=== PATIENT | female | born 1960 | race Asian ===

== ENCOUNTER → 2016-08-08 | Outpatient (CLI) | payer OTHER ==
[~2016-08-08] VITALS: Ht 162.6 cm; Wt 72.6 kg
[~2016-08-08] MED LIST: ASPI1TAB PO; ATOR1TAB19 PO; LIDOCAINE 2% INJ 100 MG/5 ML SDV (FOR ANES.) As Ordered ONE; LISI-538 PO; METF-808 PO; NS 1,000 ML IV ONE; OMEP20CA3 PO; PROPOFOL 200 MG/20 ML VIAL As Ordered ONE
--- NOTE | 2016-08-08 09:36 | ROOR ---
Patient Name: Tegan Ray Procedure Date: 08/08/2016 9:22 AM Date of : 1960 Age: 56 Room: [facility] Gender: Female Note Status: Finalized Procedure: Upper Endoscopy + Biopsies Indications: Heartburn, Family history of gastric cancer Providers: Puneet Kaiser MD Referring MD: NAVIN HOLDEN MD Requesting Provider: Medicines: Monitored Anesthesia Care Complications: No immediate complications. Procedure: Pre-Anesthesia Assessment: - The heart rate, respiratory rate, oxygen saturations, blood pressure, adequacy of pulmonary ventilation, and response to care were monitored throughout the procedure. The Endoscope was introduced through the mouth, and advanced to the second part of duodenum. The upper GI endoscopy was accomplished without difficulty. The patient tolerated the procedure well. Findings: The Z-line was regular and was found 40 cm from the incisors. No other significant abnormalities were identified in a careful examination of the stomach. Biopsies were taken with a cold forceps in the gastric antrum for Helicobacter pylori testing. The exam of the duodenum was otherwise normal. Impression: - Z-line regular, 40 cm from the incisors. - Biopsies were taken with a cold forceps for Helicobacter pylori testing. - The examination was otherwise normal. Recommendation: - Patient has a contact number available for emergencies. The signs and symptoms of potential delayed complications were discussed with the patient. Return to normal activities tomorrow. Written discharge instructions were provided to the patient. - High fiber diet. - Discharge patient to home. - Follow an antireflux regimen. - Continue present medications. - Await pathology results. - Telephone GI clinic for pathology results in 1 week. - Return to referring physician. - The findings and recommendations were discussed with the patient's family. Puneet Kaiser MD Puneet Kaiser MD 08/08/2016 9:36:18 AM This report has been signed electronically. Number of Addenda: 0 Note Initiated On: 08/08/2016 9:22 AM Estimated Blood Loss: Estimated blood loss: none.
[2016-08-08 09:59] VITALS: BP 126/84
== END | disposition home or self-care (01) ==
LOC: M OPP 08:19
PROVIDERS: ATTEND Internal Medicine Gastroenterology
DX: R12 Heartburn (principal); K62.5 Hemorrhage of anus and rectum; Z80.0 Family history of malignant neoplasm of digestive organs; I10 Essential (primary) hypertension; E78.5 Hyperlipidemia, unspecified; E11.9 Type 2 diabetes mellitus without complications; K21.9 Gastro-esophageal reflux disease without esophagitis; Z87.891 Personal history of nicotine dependence; Z91.040 Latex allergy status; Z91.030 Bee allergy status; Z79.82 Long term (current) use of aspirin; Z79.84 Long term (current) use of oral hypoglycemic drugs; Z79.899 Other long term (current) drug therapy

== ENCOUNTER → 2017-02-14 | Outpatient (CLI) | payer OTHER ==
[~2017-02-14] MED LIST changes: -LIDOCAINE 2% INJ 100 MG/5 ML SDV (FOR ANES.) As Ordered ONE; -NS 1,000 ML IV ONE; -PROPOFOL 200 MG/20 ML VIAL As Ordered ONE
--- NOTE | 2017-02-15 07:48 | REP ---
CLINICAL: History of tobacco abuse. COMPARISON: None. TECHNIQUE: Axial low dose noncontrast images from the thoracic inlet to the upper abdomen using lung screening technique imaged and reviewed in lung windows only. FINDINGS: The lung benítez are well aerated. No consolidation, significant nodule or mass lesion is appreciated. A calcified nodule in the right upper lobe (image 36) appears chronic. No pleural effusion/reaction or pneumothorax. Tracheobronchial tree is patent. The mediastinum demonstrates relatively normal aorta and heart/pericardium. Evidence for prior mammoplasty noted. IMPRESSION: Lung-RADS category I. No significant nodule or suspicious abnormality noted. Signed by Theo Carolina MD 02/15/2017 07:50 A
== END ==
LOC: M RAD 14:24
PROVIDERS: ATTEND Internal Medicine
DX: I95.9 Hypotension, unspecified (principal); F17.200 Nicotine dependence, unspecified, uncomplicated

== ENCOUNTER 2017-04-24 07:30 | Day surgery (SDC) | payer OTHER ==
[2017-04-24] MEDS: NS 1,000 ML IV (08:00)
[2017-04-24] MEDS ORDERED: LIDOCAINE 2% INJ 100 MG/5 ML SDV (FOR ANES.) As Ordered (08:50)
[2017-04-24] MEDS ORDERED: PROPOFOL 200 MG/20 ML VIAL As Ordered ×3 (08:50→08:57)
[2017-04-24] MEDS ORDERED: PHENYLephrine HCL 500 MCG/5 ML (100MCG/ML) SYRINGE (J2370) As Ordered (08:54)
== END 2017-04-24 10:10 | disposition home or self-care (01) ==
LOC: M OPP 07:30
DX: Z12.11 Encounter for screening for malignant neoplasm of colon (principal); C18.9 Malignant neoplasm of colon, unspecified; D12.0 Benign neoplasm of cecum; D17.5 Benign lipomatous neoplasm of intra-abdominal organs; K57.30 Diverticulosis of large intestine without perforation or abscess without bleeding; K64.0 First degree hemorrhoids; I10 Essential (primary) hypertension; E78.5 Hyperlipidemia, unspecified; E11.9 Type 2 diabetes mellitus without complications; R12 Heartburn; K21.9 Gastro-esophageal reflux disease without esophagitis; Z91.040 Latex allergy status; Z91.030 Bee allergy status; Z79.84 Long term (current) use of oral hypoglycemic drugs; Z79.899 Other long term (current) drug therapy; Z80.0 Family history of malignant neoplasm of digestive organs
CPT/HCPCS: 45380

== ENCOUNTER → 2017-04-30 | Outpatient (CLI) | payer OTHER ==
[~2017-04-30] MED LIST changes: -ASPI1TAB PO; -ATOR1TAB19 PO; -LISI-538 PO; -METF-808 PO; -OMEP20CA3 PO; +PROHANCE 279.3MG/ML 15ML VIAL (A9576) As Ordered
== END ==
LOC: M RAD 10:54
DX: N83.202 Unspecified ovarian cyst, left side (principal); Z90.710 Acquired absence of both cervix and uterus; C20 Malignant neoplasm of rectum
CPT/HCPCS: A9576

== ENCOUNTER → 2017-05-02 | Outpatient (CLI) | payer OTHER ==
[~2017-05-02] MED LIST changes: +GASTROGRAFIN SOLUTION 30ML (Q9963) As Ordered; +ISOVUE-370 76% 100ML VIAL (Q9967) As Ordered; -PROHANCE 279.3MG/ML 15ML VIAL (A9576) As Ordered
== END ==
LOC: M RAD 12:34
DX: R19.09 Other intra-abdominal and pelvic swelling, mass and lump (principal); N20.0 Calculus of kidney; C20 Malignant neoplasm of rectum
CPT/HCPCS: Q9963

== ENCOUNTER → 2017-05-09 | Outpatient (CLI) | payer OTHER | LOC: M EKG 12:20 | DX: C18.7 Malignant neoplasm of sigmoid colon (principal) ==

== ENCOUNTER 2017-05-13 06:35 | Inpatient (IN) | payer OTHER ==
[~2017-05-13 06:35] MED LIST changes: -GASTROGRAFIN SOLUTION 30ML (Q9963) As Ordered; +GLYCOPYRROLATE INJ 0.2 MG/ML 2 ML VIAL As Ordered; -ISOVUE-370 76% 100ML VIAL (Q9967) As Ordered; +LIDOCAINE 2% INJ 100 MG/5 ML SDV (FOR ANES.) As Ordered; +NEOSTIGMINE 10 MG/10 ML VIAL (J2710) As Ordered; +ONDANSETRON 4MG/2ML VIAL (J2405) As Ordered; +PROPOFOL 200 MG/20 ML VIAL As Ordered; +ROCURONIUM BROMIDE 50 MG/5 ML VIAL As Ordered; +dexameTHASONE 4 MG/ML 1ML VIAL (J1100) As Ordered
[2017-05-13] MEDS ORDERED: KETOROLAC 60 MG/2 ML VIAL (J1885) As Ordered (06:36)
[2017-05-13] MEDS ORDERED: dexameTHASONE 4 MG/ML 1ML VIAL (J1100) As Ordered ×2 (06:39→10:12)
[2017-05-13] MEDS ORDERED: fentaNYL 250 MCG/5 ML INJECTION (J3010) As Ordered (06:47)
[2017-05-13] MEDS ORDERED: MIDAZOLAM INJ 2 MG/2 ML VIAL (J2250) As Ordered (06:48)
[2017-05-13] MEDS ORDERED: ERTAPENEM 1 GM INJ (INVanz) (J1335) As Ordered (06:57)
[2017-05-13] MEDS: ALVIMOPAN 12 MG CAPSULE (ENTEREG) PO (07:20)
[2017-05-13] MEDS: LR 1,000 ML IV ×2 (07:25→13:00)
[2017-05-13] MEDS: HEPARIN SOD (PORCINE) 5000 UNITS/ML VIAL SQ (07:29)
[2017-05-13 07:40] LABS: BEDSIDE GLUCOSE 91 MG/DL (70-105)
[2017-05-13] MEDS: ERTAPENEM SODIUM 1 GM in NS 50 ML IV (07:53)
[2017-05-13] MEDS ORDERED: ePHEDrine INJ 50 MG/ML VIAL As Ordered (08:11)
[2017-05-13] MEDS ORDERED: ROCURONIUM BROMIDE 50 MG/5 ML VIAL As Ordered ×2 (08:26→10:13)
[2017-05-13] MEDS: BUPIVACAINE HCL 0.25% 30 ML VIAL As Ordered (08:30)
[2017-05-13] MEDS: LIDOCAINE 1% SDV INJ 30 ML VIAL As Ordered (08:39)
[2017-05-13] MEDS ORDERED: HYDROmorphone HCL 2 MG/ML 1ML VIAL (J1170) As Ordered ×2 (09:14→10:25)
[2017-05-13] MEDS ORDERED: FUROSEMIDE 100 MG/10 ML VIAL (J1940) As Ordered (11:11)
[2017-05-13] MEDS: BUPIVACAINE HCL 0.25% 10 ML VIAL As Ordered (11:55)
[2017-05-13] MEDS: BUPIVACAINE LIPOSOME/PF 1.3% 20 ML VIAL (13.3MG/ML)(EXPAREL) As Ordered (11:55)
[2017-05-13] MEDS ORDERED: MORPHINE 1MG/ML IN 0.9% NACL 100ML IV BAG As Ordered (12:12)
[2017-05-13] MEDS ORDERED: GLUCOSE 4 GM CHEW TABLET PO (12:30)
[2017-05-13] MEDS ORDERED: EPIDURAL/PCA KEYS XX (12:30)
[2017-05-13] MEDS ORDERED: DEXTROSE 50% 50 ML SYRINGE IV (12:30)
[2017-05-13] MEDS ORDERED: NALOXONE INJ 0.4 MG/1 ML VIAL (J2310) IV (12:30)
[2017-05-13] MEDS ORDERED: ACETAMINOPHEN TAB 650MG DOSE (2X325MG) PO (12:30)
[2017-05-13] MEDS ORDERED: MORPHINE 1MG/ML IN 0.9% NACL 100ML IV BAG IV (12:30)
[2017-05-13] MEDS ORDERED: NALBUPHINE HCL 10 MG/ML AMP (J2300) IV (12:30)
[2017-05-13] MEDS ORDERED: ONDANSETRON 4MG/2ML VIAL (J2405) IV ×2 (12:30→13:00)
[2017-05-13] MEDS ORDERED: diphenhydrAMINE INJ 50MG/ML VIAL (J1200) IV (12:30)
[2017-05-13] MEDS ORDERED: GLUCAGON FOR INJ 1 MG VIAL (J1610) SC (12:30)
[2017-05-13] MEDS ORDERED: fentaNYL 100 MCG/2 ML INJECTION (J3010) IV (13:00)
[2017-05-13] MEDS ORDERED: PERCOCET 5MG/325MG TAB PO (13:00)
[2017-05-13] MEDS ORDERED: KETOROLAC 30 MG/ML VIAL (J1885) IV (13:00)
[2017-05-13] MEDS ORDERED: MEPERIDINE INJ 25 MG/ML VIAL (J2175) IV (13:00)
[2017-05-13] MEDS: KETOROLAC 30 MG/ML VIAL (J1885) IV (13:26)
[2017-05-13] MEDS: NS 1,000 ML IV (14:07)
[2017-05-13] MEDS: HumaLOG INSULIN (NovoLOG) PER UNIT SC (17:30)
[2017-05-13] MEDS: PANTOPRAZOLE 40MG INJ (PROTONIX) (C9113) IV (17:32)
[2017-05-13] MEDS: HEPARIN SOD (PORCINE) 5000 UNITS/ML VIAL SC (22:11)
[2017-05-13] MEDS: ATORVASTATIN 10 MG TAB PO (22:12)
[2017-05-13] MEDS: LISINOPRIL 20 MG TAB PO (22:12)
[2017-05-14] MEDS: HEPARIN SOD (PORCINE) 5000 UNITS/ML VIAL SC ×3 (04:24→21:24)
[2017-05-14 06:27] LABS: BASO % 0.2 % (0.0-1.0); HEMATOCRIT 28.9 % (36.0-47.0); HEMOGLOBIN 9.8 g/dl (12.0-16.0); IMMATURE GRANULOCYTE % 0.4 % (0-3.0); LYMPH # 1.7 10^3/uL (1.5-4.5); LYMPH % 18.3 % (24.0-44.0); MEAN CORPUSCULAR HEMOGLOBIN 28.6 pg (27.0-33.0); MEAN CORPUSCULAR HGB CONC 33.9 g/dl (32.0-36.5); MEAN CORPUSCULAR VOLUME 84.3 fl (80.0-96.0); MONO # 0.7 10^3/uL (0.0-0.8); MONO % 7.9 % (0.0-5.0); NEUTROPHILS # 6.9 10^3/uL (1.8-7.7); NEUTROPHILS % 73.2 % (36.0-66.0); PLATELET COUNT, AUTOMATED 106 10^3/uL (150-450); RED BLOOD COUNT 3.43 10^6/uL (4.00-5.40); RED CELL DISTRIBUTION WIDTH 13.5 % (11.5-14.5); WHITE BLOOD COUNT 9.4 10^3/uL (4.0-10.0)
[2017-05-14 06:42] LABS: ANION GAP 6 MEQ/L (8-16); BLOOD UREA NITROGEN 15 MG/DL (7-18); CALCIUM LEVEL 8.6 MG/DL (8.5-10.1); CARBON DIOXIDE LEVEL 29 MEQ/L (21-32); CHLORIDE LEVEL 105 MEQ/L (98-107); CREATININE FOR GFR 0.63 MG/DL (0.55-1.30); GLOMERULAR FILTRATION RATE > 60.0 (>51); GLUCOSE, FASTING 101 MG/DL (70-100); POTASSIUM SERUM 3.9 MEQ/L (3.5-5.1); SODIUM LEVEL 140 MEQ/L (136-145)
[2017-05-14] MEDS: HumaLOG INSULIN (NovoLOG) PER UNIT SC ×3 (07:30→17:30)
[2017-05-14 12:00] LABS: BEDSIDE GLUCOSE 111 MG/DL (70-105)
[2017-05-14] MEDS: NS 1,000 ML IV (12:20)
[2017-05-14 16:49] LABS: BEDSIDE GLUCOSE 130 MG/DL (70-105)
[2017-05-14 16:49] LABS: BEDSIDE GLUCOSE 107 MG/DL (70-105)
[2017-05-14 16:49] LABS: BEDSIDE GLUCOSE 138 MG/DL (70-105)
[2017-05-14] MEDS: PANTOPRAZOLE 40MG INJ (PROTONIX) (C9113) IV (17:13)
[2017-05-14 17:16] LABS: BEDSIDE GLUCOSE 102 MG/DL (70-105)
[2017-05-14 20:57] LABS: BEDSIDE GLUCOSE 126 MG/DL (70-105)
[2017-05-14] MEDS: ATORVASTATIN 10 MG TAB PO (21:23)
[2017-05-14] MEDS: LISINOPRIL 20 MG TAB PO (21:24)
[2017-05-15] MEDS: HEPARIN SOD (PORCINE) 5000 UNITS/ML VIAL SC ×3 (04:23→20:44)
[2017-05-15 05:55] LABS: BASO % 0.3 % (0.0-1.0); EOS % 0.3 % (0.0-3.0); IMMATURE GRANULOCYTE % 0.3 % (0-3.0); LYMPH # 2.2 10^3/uL (1.5-4.5); LYMPH % 23.7 % (24.0-44.0); MEAN CORPUSCULAR HGB CONC 33.3 g/dl (32.0-36.5); MONO # 0.6 10^3/uL (0.0-0.8); MONO % 6.6 % (0.0-5.0); NEUTROPHILS # 6.5 10^3/uL (1.8-7.7); NEUTROPHILS % 68.8 % (36.0-66.0); PLATELET COUNT, AUTOMATED 120 10^3/uL (150-450); RED BLOOD COUNT 3.57 10^6/uL (4.00-5.40); RED CELL DISTRIBUTION WIDTH 13.4 % (11.5-14.5); WHITE BLOOD COUNT 9.4 10^3/uL (4.0-10.0)
[2017-05-15 06:14] LABS: ANION GAP 4 MEQ/L (8-16); BLOOD UREA NITROGEN 12 MG/DL (7-18); CALCIUM LEVEL 9.1 MG/DL (8.5-10.1); CARBON DIOXIDE LEVEL 29 MEQ/L (21-32); CHLORIDE LEVEL 107 MEQ/L (98-107); GLOMERULAR FILTRATION RATE > 60.0 (>51); GLUCOSE, FASTING 103 MG/DL (70-100); SODIUM LEVEL 140 MEQ/L (136-145)
[2017-05-15] MEDS: HumaLOG INSULIN (NovoLOG) PER UNIT SC ×3 (07:30→17:51)
[2017-05-15] MEDS: OMEPRAZOLE 20 MG CAP PO (08:09)
[2017-05-15 12:32] LABS: BEDSIDE GLUCOSE 129 MG/DL (70-105)
[2017-05-15] MEDS: SENOKOT S TAB PO ×2 (13:21→20:46)
[2017-05-15 19:59] LABS: BEDSIDE GLUCOSE 133 MG/DL (70-105)
[2017-05-15 20:24] LABS: BEDSIDE GLUCOSE 123 MG/DL (70-105)
[2017-05-15] MEDS: ATORVASTATIN 10 MG TAB PO (20:44)
[2017-05-15] MEDS: LISINOPRIL 20 MG TAB PO (20:46)
[2017-05-15] MEDS: ALVIMOPAN 12 MG CAPSULE (ENTEREG) PO (21:55)
[2017-05-16] MEDS: HEPARIN SOD (PORCINE) 5000 UNITS/ML VIAL SC ×3 (04:00→20:32)
[2017-05-16] MEDS: NORCO, ANEXSIA 5/325MG TABLET (HYDROcodone/ACETAMINOPHEN) PO ×2 (05:18→23:10)
[2017-05-16 05:58] LABS: BASO % 0.3 % (0.0-1.0); EOS # 0.1 10^3/uL (0.0-0.50); EOS % 1.4 % (0.0-3.0); HEMOGLOBIN 9.5 g/dl (12.0-16.0); IMMATURE GRANULOCYTE % 0.3 % (0-3.0); LYMPH # 1.4 10^3/uL (1.5-4.5); LYMPH % 19.8 % (24.0-44.0); MEAN CORPUSCULAR HEMOGLOBIN 27.9 pg (27.0-33.0); MEAN CORPUSCULAR HGB CONC 33.9 g/dl (32.0-36.5); MEAN CORPUSCULAR VOLUME 82.1 fl (80.0-96.0); MONO # 0.4 10^3/uL (0.0-0.8); MONO % 6.2 % (0.0-5.0); NEUTROPHILS # 5.1 10^3/uL (1.8-7.7); PLATELET COUNT, AUTOMATED 108 10^3/uL (150-450); RED BLOOD COUNT 3.41 10^6/uL (4.00-5.40); RED CELL DISTRIBUTION WIDTH 13.2 % (11.5-14.5); WHITE BLOOD COUNT 7.1 10^3/uL (4.0-10.0)
[2017-05-16 06:19] LABS: ANION GAP 8 MEQ/L (8-16); BLOOD UREA NITROGEN 11 MG/DL (7-18); CALCIUM LEVEL 8.8 MG/DL (8.5-10.1); CARBON DIOXIDE LEVEL 26 MEQ/L (21-32); CHLORIDE LEVEL 107 MEQ/L (98-107); CREATININE FOR GFR 0.52 MG/DL (0.55-1.30); GLOMERULAR FILTRATION RATE > 60.0 (>51); GLUCOSE, FASTING 105 MG/DL (70-100); POTASSIUM SERUM 3.7 MEQ/L (3.5-5.1); SODIUM LEVEL 141 MEQ/L (136-145)
[2017-05-16] MEDS: HumaLOG INSULIN (NovoLOG) PER UNIT SC ×3 (07:13→17:05)
[2017-05-16] MEDS: SENOKOT S TAB PO ×2 (08:51→20:30)
[2017-05-16] MEDS: OMEPRAZOLE 20 MG CAP PO (08:51)
[2017-05-16] MEDS: ALVIMOPAN 12 MG CAPSULE (ENTEREG) PO ×2 (08:51→20:30)
[2017-05-16 12:04] LABS: BEDSIDE GLUCOSE 158 MG/DL (70-105)
[2017-05-16 17:07] LABS: BEDSIDE GLUCOSE 113 MG/DL (70-105)
[2017-05-16 20:18] LABS: BEDSIDE GLUCOSE 170 MG/DL (70-105)
[2017-05-16] MEDS: ATORVASTATIN 10 MG TAB PO (20:32)
[2017-05-16] MEDS: LISINOPRIL 20 MG TAB PO (20:32)
[2017-05-17] MEDS: HEPARIN SOD (PORCINE) 5000 UNITS/ML VIAL SC (04:08)
[2017-05-17 06:00] LABS: BEDSIDE GLUCOSE 102 MG/DL (70-105)
[2017-05-17] MEDS: HumaLOG INSULIN (NovoLOG) PER UNIT SC (07:30)
[2017-05-17] MEDS: SENOKOT S TAB PO (08:11)
[2017-05-17] MEDS: OMEPRAZOLE 20 MG CAP PO (08:11)
[2017-05-17] MEDS: ALVIMOPAN 12 MG CAPSULE (ENTEREG) PO (08:11)
== END 2017-05-17 11:12 | disposition home or self-care (01) | DRG 331 ==
LOC: M OR 06:35 → M MSPAV 14:00
PROVIDERS: Surgery
PROC: 0DBG0ZZ Excision of Left Large Intestine, Open Approach (ICD-10-PCS; principal; 2017-05-13 07:30)
DX: C18.6 Malignant neoplasm of descending colon (principal); I10 Essential (primary) hypertension; E78.5 Hyperlipidemia, unspecified; E11.9 Type 2 diabetes mellitus without complications; Z79.84 Long term (current) use of oral hypoglycemic drugs; Z91.040 Latex allergy status; Z91.030 Bee allergy status; Z87.891 Personal history of nicotine dependence; Z79.899 Other long term (current) drug therapy; Z53.31 Laparoscopic surgical procedure converted to open procedure

== ENCOUNTER → 2017-05-21 | Outpatient (REF) | payer OTHER ==
[2017-05-21 17:16] LABS: CARCINOEMBRYONIC ANTIGEN 0.8 NG/ML (<2.5)
[2017-05-21 18:23] LABS: INR 0.94; PROTHROMBIN TIME 12.7 SECONDS (12.4-14.5)
[2017-05-21 18:24] LABS: PARTIAL THROMBOPLASTIN TIME 27.1 SECONDS (26.8-37.9)
== END ==
LOC: M LAB REF 16:35
DX: C18.9 Malignant neoplasm of colon, unspecified (principal)
CPT/HCPCS: 82378

== ENCOUNTER → 2017-05-31 | Outpatient (CLI) | payer OTHER ==
[~2017-05-31] MED LIST changes: -GLYCOPYRROLATE INJ 0.2 MG/ML 2 ML VIAL As Ordered; -LIDOCAINE 2% INJ 100 MG/5 ML SDV (FOR ANES.) As Ordered; +LIDOCAINE 2% MDV 20 ML VIAL As Ordered; -NEOSTIGMINE 10 MG/10 ML VIAL (J2710) As Ordered; -ONDANSETRON 4MG/2ML VIAL (J2405) As Ordered; -PROPOFOL 200 MG/20 ML VIAL As Ordered; -ROCURONIUM BROMIDE 50 MG/5 ML VIAL As Ordered; +ceFAZolin 1GM INJ (J0690 PER 500MG) As Ordered; -dexameTHASONE 4 MG/ML 1ML VIAL (J1100) As Ordered
== END | disposition home or self-care (01) ==
LOC: M IRPRO 10:21
DX: C18.9 Malignant neoplasm of colon, unspecified (principal)
CPT/HCPCS: 36561

== ENCOUNTER → 2017-06-26 | Outpatient (CLI) | payer OTHER | LOC: M RAD 13:04 | DX: E04.1 Nontoxic single thyroid nodule (principal) ==

== ENCOUNTER → 2017-09-10 | Outpatient (REF) | payer OTHER ==
[2017-09-10 13:42] LABS: REASON FOR REVIEW PLATELET MORPHOLOGY; SLIDE REVIEW Report; SOURCE PERIPHERAL SMEAR
== END ==
LOC: M LAB REF 13:13
DX: C18.9 Malignant neoplasm of colon, unspecified (principal); D50.9 Iron deficiency anemia, unspecified

== ENCOUNTER → 2017-09-17 | Outpatient (REF) | payer OTHER ==
[2017-09-17 13:55] LABS: REASON FOR REVIEW PLATELET MORPHOLOGY; SLIDE REVIEW Report; SOURCE PERIPHERAL SMEAR
== END ==
LOC: M LAB REF 13:27
DX: C18.9 Malignant neoplasm of colon, unspecified (principal); D50.9 Iron deficiency anemia, unspecified

== ENCOUNTER → 2018-04-16 | Outpatient (CLI) | payer OTHER ==
[~2018-04-16] MED LIST changes: +ASPI1TAB PO; +ATOR1TAB19 PO; +B121000T PO; +FERR325T3 PO; +GASTROGRAFIN SOLUTION 30ML (Q9963) As Ordered ONE; +ISOVUE-370 76% 100ML VIAL (Q9967) As Ordered ONE; -LIDOCAINE 2% MDV 20 ML VIAL As Ordered; +LISI-538 PO; +METF-808 PO; +NORCOTAB PO; +OMEP20CA3 PO; +SENO8.6T10 PO; -ceFAZolin 1GM INJ (J0690 PER 500MG) As Ordered
--- NOTE | 2018-04-16 21:30 | REP ---
Clinical: Colon cancer. Technique: Axial contrast enhanced images from the thoracic inlet to the upper abdomen with coronal and sagittal re-formations using 100 ml Isovue 370 intravenous contrast material. Comparison: 05/02/2017. Findings: Bilateral lung benítez are well-aerated, relatively symmetric and clear. No consolidation, significant nodule or mass lesion appreciated. A 4 mm calcified granuloma in the right lung (image 38) remains unchanged. No pleural effusion. No pneumothorax. Tracheobronchial tree is patent. No adenopathy. Mediastinum demonstrates atherosclerotic changes of the aorta and coronary arteries without aortic aneurysm, cardiomegaly or pericardial effusion. [id number] identified in the right chest wall with tip in the SVC. Limited upper abdomen demonstrates stable 1.8 cm right adrenal enhancing lesion. Surrounding musculoskeletal structures without focal osseous abnormality. Bilateral mammoplasty. Impression: 1. No acute mediastinal or pleuroparenchymal process. No evidence for metastatic disease. 2. Stable calcified granuloma in the right mid lung. 3. Stable 1.8 cm enhancing right adrenal mass unchanged compared to 05/02/2017. Electronically Signed by Theo Carolina MD 04/16/2018 09:21 P
--- NOTE | 2018-04-16 21:36 | REP ---
Clinical: History of colon cancer for reevaluation. Technique: Axial contrast enhanced images from the lung bases to the pubic symphysis using oral (per protocol) and 100 ml Isovue 370 intravenous contrast material with delayed images of the abdomen as well as coronal and sagittal re-formations. Comparison: 05/02/2017. Findings: Lung bases are clear. Visualized heart and pericardium normal. Liver demonstrates few subcentimeter hypodensities which are too small to characterize but likely represent cysts based on stable appearance on prior examination and delayed images. Splenomegaly without focal splenic lesion identified. Cholelithiasis suggested. Pancreas is unremarkable. Left adrenal gland and bilateral kidneys appear normal. Enhancing 1.8 cm right adrenal lesion remains stable. The enteric system is without obstruction or acute inflammatory process. Normal terminal ileum and appendix are identified in the right lower quadrant. Evidence for prior partial sigmoid resection with normal appearance to the at area of anastomosis. Evaluation of the pelvis demonstrates normal bladder and evidence for prior hysterectomy. No pelvic fluid or ascites. No free air. No adenopathy. Abdominal aorta demonstrates atherosclerotic changes without aneurysm or dissection. Surrounding musculoskeletal structures without focal osseous abnormality. Impression: 1. 1.8 centimeter enhancing right adrenal lesion unchanged from prior examination. Lesion cannot be further characterized based on current or prior examination. Probability suggests atypical adenoma metastatic disease less likely. 2. Splenomegaly without focal splenic lesion. 3. Subcentimeter hepatic hypodensities stable and likely represent cysts. 4. No acute abdominopelvic pathology appreciated. No ascites. No adenopathy. No focal mass lesion. 5. No evidence for recurrence or metastatic disease. Electronically Signed by Theo Carolina MD 04/16/2018 09:28 P
== END ==
LOC: M RAD 10:49
PROVIDERS: ATTEND Internal Medicine Medical Oncology
DX: C18.6 Malignant neoplasm of descending colon (principal); R93.421 Abnormal radiologic findings on diagnostic imaging of right kidney; R16.1 Splenomegaly, not elsewhere classified; R93.2 Abnormal findings on diagnostic imaging of liver and biliary tract; R91.8 Other nonspecific abnormal finding of lung field
CPT/HCPCS: 71260; 74177; Q9963; Q9967

== ENCOUNTER → 2018-04-28 | Outpatient (CLI) | payer OTHER ==
[~2018-04-28] MED LIST changes: -GASTROGRAFIN SOLUTION 30ML (Q9963) As Ordered ONE; -ISOVUE-370 76% 100ML VIAL (Q9967) As Ordered ONE; +METF500T13 PO
--- NOTE | 2018-04-29 07:30 | REP ---
Clinical: Abnormal liver and spleen on prior imaging. Technique: Real time small scale examination using curved array transducer. Findings: The liver is essentially normal in contour, size, echogenicity and overall appearance with approximately four sub centimeter simple cysts consistent with prior CT findings. Pancreas, gallbladder, and biliary system are normal. No evidence for cholelithiasis or biliary ductal dilatation. Common bile duct measures 4.1 mm diameter. Spleen is mildly enlarged measuring 10.9 x 5.0 x 10.1 cm, but without significant focal abnormality identified. The bilateral kidneys are normal in appearance. Right kidney measures 11.2 x 5.5 x 3.9 cm. Left kidney measures 11.7 x 5.5 x 6.6 cm. Right adrenal lesion as noted on CT is unchanged and measures 2.0 x 1.2 x 1.7 cm. Abdominal aorta is normal in appearance and measures 2.4 cm maximal diameter. No ascites. Impression: 1. Few subcentimeter hepatic cysts appear simple/benign. 2. Mild splenomegaly without focal splenic abnormality noted. 3. Right adrenal lesion consistent with prior CT findings. Electronically Signed by Theo Carolina MD 04/29/2018 07:21 A
== END ==
LOC: M RAD 08:00
PROVIDERS: ATTEND Internal Medicine Hematology & Oncology
DX: D73.9 Disease of spleen, unspecified (principal); E27.9 Disorder of adrenal gland, unspecified; R93.2 Abnormal findings on diagnostic imaging of liver and biliary tract; R93.5 Abnormal findings on diagnostic imaging of other abdominal regions, including retroperitoneum

== ENCOUNTER → 2018-05-08 | Outpatient (REF) | payer OTHER | LOC: M LAB REF 11:48 | PROVIDERS: ATTEND Internal Medicine Endocrinology, Diabetes & Metabolism | DX: E04.1 Nontoxic single thyroid nodule (principal) ==

== ENCOUNTER → 2018-06-03 | Outpatient (CLI) | payer OTHER ==
--- NOTE | 2018-06-04 09:45 | REP ---
PET/CT: History: Restaging colon cancer. The patient is status post partial left colectomy and reanastomosis. Status post chemotherapy. Concern for lymphadenopathy and liver lesions. Comparisons: Comparison CT study is from April 16, 2018. TECHNIQUE: 63 minutes following the intravenous injection of a 8.1 mCi dose of F-18 FDG, three-dimensional PET scintigraphy is acquired from the skull base to the proximal thighs. Triplanar noncontrast CT scanning is acquired through the same anatomic range for attenuation correction, and image registration with scan parameters optimized to minimize radiation exposure to the patient. PET scintigraphy and CT datasets were fused and displayed on a workstation with multiplanar and projection display capability. PET/CT Findings: Head and neck soft tissues are unremarkable on PET scintigraphy. A right-sided [id number] catheter is noted. There is no abnormal hypermetabolic uptake in the thoracic cavity. No abnormal pulmonary parenchymal hypermetabolic uptake is seen. There is a small granuloma on the right again noted. No abnormal hypermetabolic uptake is seen within the liver. The known 2 cm right adrenal nodule is seen. There is symmetric uptake in the adrenal glands bilaterally. Maximum standard uptake value in the normal left adrenal gland is 2.97 and maximum standard uptake value in the right adrenal nodule is 3.3. No other abnormal abdominal or pelvic hypermetabolic uptake is seen. There is no evidence of hypermetabolic adenopathy. Impression: Negative PET scintigraphy. Findings most compatible with benign right adrenal nodule. No PET/CT evidence to suggest metastatic disease. Electronically Signed by Jose De Jesus Brown MD 06/04/2018 03:51 P
== END ==
LOC: M PLARAD 14:16
PROVIDERS: ATTEND Internal Medicine
DX: Z85.038 Personal history of other malignant neoplasm of large intestine (principal); Z92.21 Personal history of antineoplastic chemotherapy; E27.8 Other specified disorders of adrenal gland
CPT/HCPCS: 78815; A9552

== ENCOUNTER 2018-06-04 10:30 | Day surgery (SDC) | payer OTHER ==
[~2018-06-04] VITALS: Ht 162.6 cm; Wt 69.9 kg
[~2018-06-04 10:30] MED LIST changes: +NS 1,000 ML IV ONE
[2018-06-04 11:20] LABS: HEMATOCRIT 40.4 % (36.0-47.0); HEMOGLOBIN 13.7 g/dl (12.0-15.5); MEAN CORPUSCULAR HEMOGLOBIN 29.9 pg (27.0-33.0); MEAN CORPUSCULAR HGB CONC 33.9 g/dl (32.0-36.5); MEAN CORPUSCULAR VOLUME 88.2 fl (80.0-96.0); RED BLOOD COUNT 4.58 10^6/uL (4.00-5.40)
[2018-06-04 11:21] LABS: PLATELET COUNT, AUTOMATED 89 10^3/uL (150-450)
[2018-06-04] MEDS ORDERED: LIDOCAINE 2% INJ 100 MG/5 ML SDV (FOR ANES.) As Ordered ONE (11:59)
[2018-06-04] MEDS ORDERED: PROPOFOL 200 MG/20 ML VIAL As Ordered ONE (12:00)
--- NOTE | 2018-06-04 13:20 | ROOR ---
Patient Name: Tegan Ray Procedure Date: 06/04/2018 12:42 PM Date of : 1960 Age: 58 Room: [facility] Gender: Female Note Status: Finalized Procedure: Colonoscopy Indications: High risk colon cancer surveillance: Personal history of colon cancer Providers: Radhames Honeycutt MD Referring MD: NAVIN HOLDEN MD Requesting Provider: Medicines: Monitored Anesthesia Care Complications: No immediate complications. Procedure: Pre-Anesthesia Assessment: - Prior to the procedure, a History and Physical was performed, and patient medications and allergies were reviewed. The patient is competent. The risks and benefits of the procedure and the sedation options and risks were discussed with the patient. All questions were answered and informed consent was obtained. Patient identification and proposed procedure were verified by the physician, the nurse and the anesthesiologist in the endoscopy suite. Mental Status Examination: alert and oriented. Airway Examination: normal oropharyngeal airway and neck mobility. Respiratory Examination: clear to auscultation. CV Examination: normal. Prophylactic Antibiotics: The patient does not require prophylactic antibiotics. Prior Anticoagulants: The patient has taken no previous anticoagulant or antiplatelet agents. ASA Grade Assessment: II - A patient with mild systemic disease. After reviewing the risks and benefits, the patient was deemed in satisfactory condition to undergo the procedure. The anesthesia plan was to use monitored anesthesia care (MAC). Immediately prior to administration of medications, the patient was re-assessed for adequacy to receive sedatives. The heart rate, respiratory rate, oxygen saturations, blood pressure, adequacy of pulmonary ventilation, and response to care were monitored throughout the procedure. The physical status of the patient was re-assessed after the procedure. The Colonoscope was introduced through the anus and advanced to the cecum, identified by appendiceal orifice and ileocecal valve. The colonoscopy was performed without difficulty. The patient tolerated the procedure well. The quality of the bowel preparation was excellent. Findings: Skin tags were found on perianal exam. There was a small lipoma, 10 mm in diameter, in the cecum. This was biopsied with a cold forceps for histology. Estimated blood loss was minimal. A diminutive, non-bleeding polyp was found in the anastomosis. The polyp was semi-pedunculated. The polyp was removed with a jumbo cold forceps. Resection and retrieval were complete. For hemostasis, one hemostatic clip was successfully placed (MR conditional). There was no bleeding at the end of the procedure. 3-0 silk sutures noted at area of anastomosis. Anastomosis healthy, nonstrictured. No additional abnormalities were found on retroflexion. Impression: - Perianal skin tags found on perianal exam. - Small lipoma in the cecum. Biopsied. - One diminutive, non-bleeding polyp at the anastomosis, removed with a jumbo cold forceps. Resected and retrieved. Clip (MR conditional) was placed. Recommendation: - Discharge patient to home (ambulatory). - Repeat colonoscopy in 3 years for surveillance. - Telephone my office for pathology results in 1 week. Radhames Honeycutt MD Radhames Honeycutt MD 06/04/2018 1:19:35 PM Electronically signed by Radhames Honeycutt MD Number of Addenda: 0 Note Initiated On: 06/04/2018 12:42 PM Estimated Blood Loss: Estimated blood loss was minimal.
[2018-06-04 13:35] VITALS: BP 137/78
== END 2018-06-04 13:42 | disposition home or self-care (01) ==
LOC: M OPP 10:30
PROVIDERS: ATTEND Surgery
DX: D17.5 Benign lipomatous neoplasm of intra-abdominal organs (principal); Z85.038 Personal history of other malignant neoplasm of large intestine; D12.6 Benign neoplasm of colon, unspecified; K64.4 Residual hemorrhoidal skin tags; Z08 Encounter for follow-up examination after completed treatment for malignant neoplasm; D69.6 Thrombocytopenia, unspecified; D35.01 Benign neoplasm of right adrenal gland; Z79.84 Long term (current) use of oral hypoglycemic drugs; Z79.899 Other long term (current) drug therapy; Z91.041 Radiographic dye allergy status; Z87.891 Personal history of nicotine dependence

== ENCOUNTER → 2018-09-22 | Outpatient (CLI) | payer OTHER ==
[~2018-09-22] MED LIST changes: -ASPI1TAB PO; +ASPI81TA26 PO; +HYDR-3715 PO; +MAVY1TAB PO; -METF-808 PO; +METF-954 PO; -NORCOTAB PO; -NS 1,000 ML IV ONE; +OMEP1CAP73 PO; -OMEP20CA3 PO
--- NOTE | 2018-09-22 09:45 | REP ---
Limited abdominal ultrasound for splenomegaly: Review of the film file reveals the patient has history of colon carcinoma and history of right adrenal nodule. Study today is limited due to the spleen. The spleen is normal size measuring 11.1 x 8.0 x 5.0 cm with a splenic index of 444. The splenic parenchyma is homogeneous. There are no focal splenic masses. The left kidney is normal size measuring 12.5 x 5.4-0.8 cm. There are is no left renal calculus, hydronephrosis, mass or cyst. The right adrenal is not imaged. Impression: The spleen is normal size, homogeneous and otherwise normal. The left kidney is unremarkable. Electronically Signed by Edgar Barnett MD 09/22/2018 09:36 A
== END ==
LOC: M RAD 07:23
PROVIDERS: ATTEND Internal Medicine
DX: Z86.2 Personal history of diseases of the blood and blood-forming organs and certain disorders involving the immune mechanism (principal)

== ENCOUNTER → 2018-10-21 | Outpatient (CLI) | payer OTHER ==
[~2018-10-21] MED LIST changes: -MAVY1TAB PO; -OMEP1CAP73 PO; +OMEP20CA4 PO
[2018-10-21 17:11] LABS: ALBUMIN 4.1 GM/DL (3.2-5.2); BILIRUBIN,DIRECT 0.2 MG/DL (0.0-0.2); BILIRUBIN,TOTAL 0.7 MG/DL (0.2-1.0); TOTAL PROTEIN 7.8 GM/DL (6.4-8.2)
[2018-10-27 14:07] LABS: ANTI-MITOCHONDRIAL ANTIBODY <20.0 Units (0.0-20.0); ANTI-SMOOTH MUSCLE ANTIBODY 16 Units (0-19); HEPATITIS A IgG TOTAL Positive (Negative); HEPATITIS B CORE ANTIBODY IGG Positive (Negative); HEPATITIS C VIRUS GENOTYPE 1b (.); LIVER-KIDNEY MICROSOMAL ABY <20.1 Units (0.0-20.0)
== END ==
LOC: M LAB 16:14
PROVIDERS: ATTEND Internal Medicine Gastroenterology
DX: B18.2 Chronic viral hepatitis C (principal)

== ENCOUNTER → 2018-11-06 | Outpatient (CLI) | payer OTHER ==
[~2018-11-06] MED LIST changes: +MAVY1TAB PO; +OMEP1CAP73 PO; -OMEP20CA4 PO
[2018-11-09 00:06] LABS: HBV HBV DNA not detected IU/mL (.); HEPATITIS BE ANTIBODY Positive (Negative); HEPATITIS BE ANTIGEN Negative (Negative)
== END ==
LOC: M LAB 09:57
PROVIDERS: ATTEND Internal Medicine Gastroenterology
DX: D69.6 Thrombocytopenia, unspecified (principal); B18.2 Chronic viral hepatitis C

== ENCOUNTER → 2018-11-13 | Outpatient (REF) | payer OTHER ==
[~2018-11-13] MED LIST changes: -MAVY1TAB PO; -OMEP1CAP73 PO; +OMEP20CA4 PO
[2018-11-13 13:58] LABS: CALCIUM LEVEL 10.5 MG/DL (8.5-10.1); PHOSPHORUS LEVEL 2.7 MG/DL (2.5-4.9); PTH INTACT 83.4 PG/ML (18.5-88.0)
== END ==
LOC: M LABDRAW1 12:05
PROVIDERS: ATTEND Internal Medicine Endocrinology, Diabetes & Metabolism
DX: E21.3 Hyperparathyroidism, unspecified (principal)

== ENCOUNTER → 2018-11-13 | Outpatient (REF) | payer OTHER | LOC: M LAB REF 12:20 | PROVIDERS: ATTEND Internal Medicine Endocrinology, Diabetes & Metabolism | DX: E04.1 Nontoxic single thyroid nodule (principal); E21.3 Hyperparathyroidism, unspecified ==

== ENCOUNTER 2018-11-25 12:51 | Day surgery (SDC) | payer OTHER ==
[~2018-11-25] VITALS: Ht 162.6 cm; Wt 70.7 kg
[~2018-11-25 12:51] MED LIST changes: +NS 1,000 ML IV ONE
[2018-11-25] MEDS ORDERED: PROPOFOL 500 MG/50 ML VIAL As Ordered ONE (15:08)
[2018-11-25] MEDS ORDERED: LIDOCAINE 2% INJ 100 MG/5 ML SDV (FOR ANES.) As Ordered ONE (15:08)
[2018-11-25] MEDS ORDERED: fentaNYL 100 MCG/2 ML INJECTION (J3010) As Ordered ONE (15:08)
[2018-11-25 15:30] VITALS: BP 133/82
--- NOTE | 2018-11-25 15:46 | ROOR ---
Patient Name: Tegan Ray Procedure Date: 11/25/2018 2:53 PM Date of : 1960 Age: 58 Room: [facility] Gender: Female Note Status: Finalized Procedure: Upper GI endoscopy Indications: Portal hypertension rule out esophageal varices Providers: Moshe Eduardo MD Referring MD: NAVIN HOLDEN MD Requesting Provider: Medicines: Monitored Anesthesia Care Complications: No immediate complications. Procedure: Pre-Anesthesia Assessment: - Prior to the procedure, a History and Physical was performed, and patient medications and allergies were reviewed. The patient is competent. The risks and benefits of the procedure and the sedation options and risks were discussed with the patient. All questions were answered and informed consent was obtained. Patient identification and proposed procedure were verified by the physician, the nurse and the anesthesiologist in the procedure room. Mental Status Examination: alert and oriented. Airway Examination: normal oropharyngeal airway and neck mobility. Respiratory Examination: clear to auscultation. CV Examination: normal. Prophylactic Antibiotics: The patient does not require prophylactic antibiotics. Prior Anticoagulants: The patient has taken no previous anticoagulant or antiplatelet agents. ASA Grade Assessment: II - A patient with mild systemic disease. After reviewing the risks and benefits, the patient was deemed in satisfactory condition to undergo the procedure. The anesthesia plan was to use monitored anesthesia care (MAC). Immediately prior to administration of medications, the patient was re-assessed for adequacy to receive sedatives. The heart rate, respiratory rate, oxygen saturations, blood pressure, adequacy of pulmonary ventilation, and response to care were monitored throughout the procedure. The physical status of the patient was re-assessed after the procedure. The Endoscope was introduced through the mouth, and advanced to the second part of duodenum. The upper GI endoscopy was accomplished without difficulty. The patient tolerated the procedure well. Findings: The Z-line was regular and was found in the distal esophagus. There is no endoscopic evidence of varices in the entire esophagus. Scattered moderate inflammation characterized by erosions, erythema and granularity was found in the gastric antrum. Biopsies were taken with a cold forceps for Helicobacter pylori testing. Biopsies were taken with a cold forceps for histology. Verification of patient identification for the specimen was done by the physician and nurse using the patient's name, date and medical record number. Estimated blood loss was minimal. For hemostasis, one hemostatic clip was successfully placed. There was no bleeding at the end of the procedure. The duodenal bulb and second portion of the duodenum were normal. Impression: - Z-line regular, in the distal esophagus. - Gastritis. Biopsied. Clip was placed. - Normal duodenal bulb and second portion of the duodenum. Recommendation: - Patient has a contact number available for emergencies. The signs and symptoms of potential delayed complications were discussed with the patient. Return to normal activities tomorrow. Written discharge instructions were provided to the patient. - High fiber diet. - Continue present medications. - Use Zantac (ranitidine) 150 mg PO BID for 6 days. - Return to GI clinic in [facility] (address [address], [address], [place] [address]) in 4 -- 6 weeks. Please call GI clinic @ [phone] for apppointment date and time. - Telephone GI clinic for pathology results in 1 week. - Return to primary care physician. Moshe Eduardo MD Moshe Eduardo MD 11/25/2018 3:46:05 PM Electronically signed by Moshe Eduardo MD Number of Addenda: 0 Note Initiated On: 11/25/2018 2:53 PM Estimated Blood Loss: Estimated blood loss was minimal.
== END 2018-11-25 15:42 | disposition home or self-care (01) ==
LOC: M OPP 12:51
PROVIDERS: ATTEND Internal Medicine Gastroenterology
DX: K29.70 Gastritis, unspecified, without bleeding (principal); K76.6 Portal hypertension; Z79.84 Long term (current) use of oral hypoglycemic drugs; Z91.030 Bee allergy status; Z91.040 Latex allergy status; Z87.891 Personal history of nicotine dependence
CPT/HCPCS: 43239; 88305; J3010

== ENCOUNTER → 2019-01-07 | Outpatient (CLI) | payer OTHER ==
[~2019-01-07] MED LIST changes: +MAVY1TAB PO; -NS 1,000 ML IV ONE
[2019-01-07 15:41] LABS: ALBUMIN 4.1 GM/DL (3.2-5.2); BILIRUBIN,DIRECT 0.2 MG/DL (0.0-0.2); TOTAL PROTEIN 7.6 GM/DL (6.4-8.2)
== END ==
LOC: M LAB 13:51
PROVIDERS: ATTEND Internal Medicine Gastroenterology
DX: B18.2 Chronic viral hepatitis C (principal)

== ENCOUNTER → 2019-02-26 | Outpatient (CLI) | payer OTHER ==
[~2019-02-26] MED LIST changes: +OMEP-172 PO; -OMEP20CA4 PO
[2019-02-26 10:23] LABS: CALCIUM LEVEL 9.7 MG/DL (8.5-10.1); PHOSPHORUS LEVEL 2.3 MG/DL (2.5-4.9)
[2019-02-26 10:30] LABS: TOTAL 25(OH) VITAMIN D 34.4 NG/ML (30.0-100.0)
--- NOTE | 2019-02-26 15:13 | REP ---
Sestamibi nuclear parathyroid scintigraphy: With SPECT imaging. History: Hyperparathyroidism. Technique: 26.8 mCi of technetium 99m sestamibi is injected. 15-minute delay, and 3 hour delayed images are acquired. SPECT imaging is acquired and axial, coronal and sagittal reformatted scans are generated. Source rotational images are reviewed as well. Scintigraphic findings: The 15-minute post injection images demonstrate expected salivary and thyroid uptake. Delayed scan images demonstrate no evidence of retained focus of increased uptake in the neck to suggest parathyroid adenoma. SPECT images show no additional abnormality. Impression: Negative sestamibi parathyroid nuclear scintigraphy. Electronically Signed by Jose De Jesus Brown MD 02/26/2019 05:03 P
== END ==
LOC: M RAD 09:16
PROVIDERS: ATTEND Internal Medicine Endocrinology, Diabetes & Metabolism
DX: E21.3 Hyperparathyroidism, unspecified (principal)
CPT/HCPCS: 36415; 78803; 82306; 82310; 84100; A9500

== ENCOUNTER → 2019-06-18 | Outpatient (CLI) | payer OTHER ==
[~2019-06-18] MED LIST changes: -OMEP-172 PO; +OMEP1CAP73 PO
--- NOTE | 2019-06-18 09:35 | REP ---
ULTRASOUND ABDOMEN: Real-time sonographic evaluation of the abdomen performed. Gallbladder demonstrates no evidence of intraluminal sludge or calculi, wall thickening or pericholecystic fluid. There is no intrahepatic or extrahepatic biliary dilatation, common bile duce measuring 6 mm. The liver demonstrates a 5 mm cyst in the right lobe. Other previously identified cysts are not seen today. Pancreas demonstrates no obvious abnormality, evaluation is limited due to overlying bowel gas. Spleen is normal in size, measuring 9.3 x 4.8 x 9.4 cm. Kidneys are normal in size and echotexture, right kidney measuring 11.6 x 4.8 x 4.6 cm and the left kidney 12.1 x 5.3 x 5.5 cm. There is no hydronephrosis or mass. Superior to the right kidney is a right adrenal nodule measuring 2.2 x 1.6 x 1.7 cm. There appears to be a 3 mm calcification in the mid right kidney. Abdominal aorta is normal in caliber with no aneurysm, proximally, the maximum AP diameter is 2.7 cm, distally 1.8 cm. There is no ascites. IMPRESSION: Subcentimeter cyst right lobe of liver. Right adrenal nodule with maximum diameter 2.2 cm. On prior study of 04/28/2018, this measured 2 cm in maximum diameter. There is a 3 mm calcification in the mid right kidney. No other significant findings. Electronically Signed by Edgar Wang MD 06/18/2019 11:59 A
[2019-06-18 09:56] LABS: PLATELET COUNT, AUTOMATED 103 10^3/uL (150-450)
[2019-06-18 10:09] LABS: ALBUMIN 4.7 GM/DL (3.2-5.2); BILIRUBIN,DIRECT 0.3 MG/DL (0.0-0.2)
== END ==
LOC: M RAD 08:14
PROVIDERS: ATTEND Internal Medicine Gastroenterology
DX: B18.2 Chronic viral hepatitis C (principal); D69.6 Thrombocytopenia, unspecified

== ENCOUNTER → 2020-05-26 | Outpatient (CLI) | payer OTHER ==
[~2020-05-26] MED LIST changes: -LISI-538 PO; +LISI20TA33 PO
--- NOTE | 2020-05-26 10:50 | REP ---
INDICATION: NICOTINE DEPENDENCE COMPARISON: 04/16/2018 TECHNIQUE: Axial noncontrast images from the thoracic inlet to the upper abdomen using low-dose lung screening technique (LDCT). FINDINGS: Bilateral lung benítez are well aerated and essentially clear. No focal consolidation, suspicious nodule or mass lesion. Calcified 3 mm nodule in the right mid lobe unchanged. No effusion. No pneumothorax. Tracheobronchial tree is patent. IMPRESSION: Lung-RADS category 1. Management recommendations include annual low-dose CT surveillance. <Electronically signed by Theo Carolina > 05/26/20 [id number]
== END ==
LOC: M RAD 09:26
PROVIDERS: ATTEND Family Medicine
DX: Z12.2 Encounter for screening for malignant neoplasm of respiratory organs (principal); F17.210 Nicotine dependence, cigarettes, uncomplicated

== ENCOUNTER → 2021-02-09 | Outpatient (CLI) | payer OTHER ==
[~2021-02-09] MED LIST changes: +METF-1191 PO; -METF-954 PO
--- NOTE | 2021-02-09 13:54 | DEXAMM ---
INDICATION: OSTEO SCREENING HYPERPARATHYROIDISM. COMPARISON: 12/07/2011. TECHNIQUE: Bone density was measured using dual-energy x-ray absorptiometry (DEXA). FINDINGS: AP SPINE L1-L4 BMD 1.084 g/cm2 Young Adult T-Score -0.8 Age Matched Z-Score 0.5. LT FEMUR, TOTAL BMD 0.878 g/cm2 Young Adult T-Score -1.0 Age Matched Z-Score -0.1. LT NECK BMD 0.891 g/cm2 Young Adult T-Score -1.1 Age Matched Z-Score 0.2. RT FEMUR, TOTAL BMD 0.894 g/cm2 Young Adult T-Score -0.9 Age Matched Z-Score 0.1. RT NECK BMD 0.937 g/cm2 Young Adult T-Score -0.7 Age Matched Z-Score 0.5. IMPRESSION: There is normal bone density of the spine. There is low bone density of the left hip. There is normal bone density of the right hip. The density of the spine has decreased 9.1% since the initial exam on 12/07/2011. The density of the left hip has decreased 9.9% since initial exam on 12/07/2011. The density of the right hip has decreased 6.2% since the initial exam on 12/07/2011. FOLLOW-UP: Recommendation for the next bone density exam: 2 years. <Electronically signed by Edgar Wang > 02/09/21 [id number]
== END ==
LOC: M WHC 12:31
PROVIDERS: ATTEND Internal Medicine Endocrinology, Diabetes & Metabolism
DX: M85.851 Other specified disorders of bone density and structure, right thigh (principal); M85.852 Other specified disorders of bone density and structure, left thigh; E21.3 Hyperparathyroidism, unspecified

== ENCOUNTER → 2021-05-18 | Outpatient (CLI) | payer OTHER ==
[~2021-05-18] MED LIST changes: +GASTROGRAFIN SOLUTION 30ML (Q9963) As Ordered ONE; +ISOVUE-370 76% 100ML VIAL As Ordered ONE
== END ==
LOC: M RAD 10:58
PROVIDERS: ATTEND Specialist
DX: C18.9 Malignant neoplasm of colon, unspecified (principal)

== ENCOUNTER → 2021-06-01 | Outpatient (CLI) | payer OTHER ==
[~2021-06-01] MED LIST changes: +CINA30TA5; -GASTROGRAFIN SOLUTION 30ML (Q9963) As Ordered ONE; -ISOVUE-370 76% 100ML VIAL As Ordered ONE
== END ==
LOC: M RAD 09:05
PROVIDERS: ATTEND Family Medicine
DX: F17.201 Nicotine dependence, unspecified, in remission (principal)

== ENCOUNTER → 2021-06-01 | Outpatient (CLI) | payer OTHER | LOC: M WHC 07:11 | PROVIDERS: ATTEND Physician Assistant | DX: K29.70 Gastritis, unspecified, without bleeding (principal); R93.89 Abnormal findings on diagnostic imaging of other specified body structures ==

== ENCOUNTER → 2021-07-07 | Outpatient (CLI) | payer OTHER ==
[~2021-07-07] MED LIST changes: +LORA-674 PO
== END ==
LOC: M LABSMTC 10:37
PROVIDERS: ATTEND Anesthesiology
DX: Z01.812 Encounter for preprocedural laboratory examination (principal); Z20.822 Contact with and (suspected) exposure to COVID-19

== ENCOUNTER 2021-07-12 06:43 | Day surgery (SDC) | payer OTHER ==
[~2021-07-12] VITALS: Ht 162.6 cm; Wt 69.4 kg
[~2021-07-12 06:43] MED LIST changes: +NS 1,000 ML IV ONE
[2021-07-12] MEDS ORDERED: propofoL 200 MG/20 ML VIAL As Ordered ONE (07:30)
[2021-07-12] MEDS ORDERED: fentaNYL 100 MCG/2 ML INJECTION As Ordered ONE (07:30)
[2021-07-12] MEDS ORDERED: LIDOCAINE 2% 100MG/5ML SDV (FOR ANES.) As Ordered ONE (07:30)
[2021-07-12 08:40] VITALS: BP 140/73
== END 2021-07-12 08:45 | disposition home or self-care (01) ==
LOC: M OPP 06:43
PROVIDERS: ATTEND Surgery
DX: Z85.038 Personal history of other malignant neoplasm of large intestine (principal); R12 Heartburn; D12.6 Benign neoplasm of colon, unspecified; D13.1 Benign neoplasm of stomach; K64.9 Unspecified hemorrhoids; Z98.0 Intestinal bypass and anastomosis status; K31.89 Other diseases of stomach and duodenum; I10 Essential (primary) hypertension; E78.5 Hyperlipidemia, unspecified; E11.9 Type 2 diabetes mellitus without complications; K21.9 Gastro-esophageal reflux disease without esophagitis; Z92.21 Personal history of antineoplastic chemotherapy; Z87.891 Personal history of nicotine dependence; Z91.030 Bee allergy status; Z91.040 Latex allergy status; Z79.84 Long term (current) use of oral hypoglycemic drugs; Z79.899 Other long term (current) drug therapy; Z83.3 Family history of diabetes mellitus; Z82.49 Family history of ischemic heart disease and other diseases of the circulatory system; Z80.0 Family history of malignant neoplasm of digestive organs
CPT/HCPCS: 43239; 45380; 88305; J3010

== ENCOUNTER → 2021-08-31 | Outpatient (CLI) | payer OTHER ==
[~2021-08-31] MED LIST changes: -NS 1,000 ML IV ONE
== END ==
LOC: M WHC 13:14
PROVIDERS: ATTEND Obstetrics & Gynecology
DX: N83.202 Unspecified ovarian cyst, left side (principal)

== ENCOUNTER → 2021-10-08 | Outpatient (CLI) | payer OTHER | LOC: M LABSMTC 09:43 | PROVIDERS: ATTEND Anesthesiology | DX: Z01.812 Encounter for preprocedural laboratory examination (principal); Z20.822 Contact with and (suspected) exposure to COVID-19 ==

== ENCOUNTER 2021-10-11 13:06 | Day surgery (SDC) | payer OTHER ==
[~2021-10-11] VITALS: Ht 162.6 cm; Wt 69.0 kg
[~2021-10-11 13:06] MED LIST changes: +LR 1,000 ML IV ONE; +ceFAZolin SOD 2 GM in IV 1 EA IV ONE
[2021-10-11] MEDS ORDERED: LR 1,000 ML IV SCH ×2 (13:20→16:30)
[2021-10-11] MEDS ORDERED: KETOROLAC 60MG 2ML VIAL As Ordered ONE (14:29)
[2021-10-11] MEDS ORDERED: LIDOCAINE 2% 100MG/5ML SDV (FOR ANES.) As Ordered ONE (14:29)
[2021-10-11] MEDS ORDERED: dexameTHASONE 4 MG/ML 1ML VIAL (J1100 PER 1MG) As Ordered ONE (14:29)
[2021-10-11] MEDS ORDERED: fentaNYL 100 MCG/2 ML INJECTION As Ordered ONE (14:29)
[2021-10-11] MEDS ORDERED: MIDAZOLAM INJ 2MG/2ML VIAL (J2250 PER 1MG) As Ordered ONE (14:29)
[2021-10-11] MEDS ORDERED: ROCURONIUM BROMIDE 50 MG/5 ML VIAL As Ordered ONE (14:29)
[2021-10-11] MEDS ORDERED: propofoL 200 MG/20 ML VIAL As Ordered ONE (14:29)
[2021-10-11] MEDS ORDERED: ONDANSETRON 4MG 2ML VIAL As Ordered ONE (14:29)
[2021-10-11] MEDS ORDERED: SUGAMMADEX SODIUM 500 MG/5 ML VIAL (BRIDION) As Ordered ONE (14:30)
[2021-10-11] MEDS ORDERED: BUPIVACAINE/EPIN 0.25% 30 ML VIAL As Ordered ONE (14:53)
[2021-10-11] MEDS ORDERED: oxyCODONE 5MG TAB PO PRN (16:30)
[2021-10-11] MEDS ORDERED: ONDANSETRON 4MG 2ML VIAL IV PRN (16:30)
[2021-10-11] MEDS ORDERED: hydrALAZINE 20MG/ML 1ML VIAL (J0360 PER 20MG) As Ordered ONE (16:53)
[2021-10-11] MEDS: fentaNYL 100 MCG/2 ML INJECTION IV PRN ×3 (17:02→17:21)
[2021-10-11] MEDS ORDERED: PERCOCET 5MG/325MG TAB PO PRN (17:35)
[2021-10-11 18:45] VITALS: BP 125/66
[2021-10-11] MEDS ORDERED: IBUPROFEN 800 MG TAB PO SCH (21:00)
== END 2021-10-11 18:50 | disposition home or self-care (01) ==
LOC: M SDC 13:06
PROVIDERS: ATTEND Obstetrics & Gynecology
DX: D27.1 Benign neoplasm of left ovary (principal); N83.292 Other ovarian cyst, left side; N73.6 Female pelvic peritoneal adhesions (postinfective); Z87.891 Personal history of nicotine dependence; Z85.038 Personal history of other malignant neoplasm of large intestine; Z90.49 Acquired absence of other specified parts of digestive tract; I10 Essential (primary) hypertension; E11.9 Type 2 diabetes mellitus without complications; E78.5 Hyperlipidemia, unspecified; J30.2 Other seasonal allergic rhinitis; Z79.899 Other long term (current) drug therapy; Z79.84 Long term (current) use of oral hypoglycemic drugs
CPT/HCPCS: 36415; 58660; 58661; 86850; 86900; 86901; 88305; J0360; J0690; J1100; J1885; J2250; J2405; J3010

== ENCOUNTER → 2021-11-28 | Outpatient (POV) | payer OTHER ==
[~2021-11-28] VITALS: Ht 162.6 cm; Wt 70.0 kg
[~2021-11-28] MED LIST changes: -LR 1,000 ML IV ONE; +PANT40TA29; -ceFAZolin SOD 2 GM in IV 1 EA IV ONE
[2021-11-28 09:20] VITALS: BP 169/80
== END ==
LOC: M IRPOV 09:11
PROVIDERS: ATTEND Radiology Diagnostic Radiology
DX: Z45.2 Encounter for adjustment and management of vascular access device (principal); I10 Essential (primary) hypertension; E78.5 Hyperlipidemia, unspecified; K21.9 Gastro-esophageal reflux disease without esophagitis; Z85.038 Personal history of other malignant neoplasm of large intestine; Z90.710 Acquired absence of both cervix and uterus; Z80.0 Family history of malignant neoplasm of digestive organs; Z87.891 Personal history of nicotine dependence; Z91.030 Bee allergy status; Z91.040 Latex allergy status; Z79.84 Long term (current) use of oral hypoglycemic drugs; Z79.899 Other long term (current) drug therapy

== ENCOUNTER → 2021-12-10 | Outpatient (CLI) | payer OTHER | LOC: M LABSMTC 10:18 | PROVIDERS: ATTEND Anesthesiology | DX: Z01.818 Encounter for other preprocedural examination (principal); Z11.52 Encounter for screening for COVID-19 ==

== ENCOUNTER → 2021-12-14 | Outpatient (CLI) | payer OTHER ==
[~2021-12-14] MED LIST changes: +LIDOCAINE 1% MDV 20ML VIAL As Ordered ONE; +MIDAZOLAM INJ 2MG/2ML VIAL (J2250 PER 1MG) As Ordered ONE; +NS 1,000 ML IV SCH; +ceFAZolin 2 GM/D5W 50 ML IV BAG (J0690 PER 500MG) As Ordered ONE; +ceFAZolin SOD 2 GM in IV 1 EA IV ONE; +diphenhydrAMINE 50MG/ML VIAL (J1200) As Ordered ONE; +fentaNYL 100 MCG/2 ML INJECTION As Ordered ONE
[2021-12-14 15:00] VITALS: BP 161/84
== END ==
LOC: M IRPRO 11:52
PROVIDERS: ATTEND Radiology Diagnostic Radiology
DX: Z45.2 Encounter for adjustment and management of vascular access device (principal); C18.9 Malignant neoplasm of colon, unspecified; Z79.84 Long term (current) use of oral hypoglycemic drugs; Z79.899 Other long term (current) drug therapy; Z91.030 Bee allergy status; Z91.040 Latex allergy status
CPT/HCPCS: 36590; 99152; J0690; J1200; J1644; J2250; J3010

== ENCOUNTER → 2022-01-16 | Outpatient (POV) | payer OTHER ==
[~2022-01-16] VITALS: Ht 162.6 cm; Wt 69.5 kg
[~2022-01-16] MED LIST changes: -LIDOCAINE 1% MDV 20ML VIAL As Ordered ONE; -MIDAZOLAM INJ 2MG/2ML VIAL (J2250 PER 1MG) As Ordered ONE; -NS 1,000 ML IV SCH; -ceFAZolin 2 GM/D5W 50 ML IV BAG (J0690 PER 500MG) As Ordered ONE; -ceFAZolin SOD 2 GM in IV 1 EA IV ONE; -diphenhydrAMINE 50MG/ML VIAL (J1200) As Ordered ONE; -fentaNYL 100 MCG/2 ML INJECTION As Ordered ONE
[2022-01-16 11:15] VITALS: BP 145/69
== END ==
LOC: M IRPOV 10:55
PROVIDERS: ATTEND Radiology Diagnostic Radiology
DX: Z45.2 Encounter for adjustment and management of vascular access device (principal); Z91.030 Bee allergy status; Z91.040 Latex allergy status

== ENCOUNTER 2022-04-18 13:20 | Inpatient (IN) | payer OTHER ==
[~2022-04-18] VITALS: Ht 162.6 cm; Wt 69.5 kg
[2022-04-18] MEDS ORDERED: CIPR500T39 (13:35)
[2022-04-18] MEDS ORDERED: TAMS1CAP17 (13:35)
[2022-04-18] MEDS ORDERED: HYDR-4571 (13:35)
[2022-04-18 15:43] LABS: BASO # 0.1 10^3/uL (0.0-0.2); BASO % 0.2 % (0.0-1.0); EOS % 0.1 % (0.0-3.0); HEMATOCRIT 36.7 % (36.0-47.0); HEMOGLOBIN 12.7 g/dl (12.0-15.5); LYMPH # 1.2 10^3/uL (1.5-5.0); LYMPH % 5.3 % (24.0-44.0); MEAN CORPUSCULAR HEMOGLOBIN 29.6 pg (27.0-33.0); MEAN CORPUSCULAR HGB CONC 34.6 g/dl (32.0-36.5); MEAN CORPUSCULAR VOLUME 85.5 fl (80.0-96.0); MONO # 1.3 10^3/uL (0.0-0.8); NEUTROPHILS # 19.1 10^3/uL (1.5-8.5); NEUTROPHILS % 86.9 % (36.0-66.0); RED BLOOD COUNT 4.29 10^6/uL (4.00-5.40)
[2022-04-18] MEDS ORDERED: NS 1,000 ML IV ONE (16:00)
[2022-04-18] MEDS ORDERED: ONDANSETRON 4MG 2ML VIAL IV ONE (16:00)
[2022-04-18] MEDS ORDERED: KETOROLAC 30 MG/ML 1ML VIAL IV ONE (16:00)
[2022-04-18 16:06] LABS: PLATELET COUNT, AUTOMATED 68 10^3/uL (150-450)
[2022-04-18 16:09] LABS: ALBUMIN 3.5 G/DL (3.2-5.2); BILIRUBIN,DIRECT 0.5 MG/DL (<0.4); BILIRUBIN,TOTAL 1.6 MG/DL (0.3-1.2); CALCIUM LEVEL 9.8 MG/DL (8.3-10.6); CREATININE FOR GFR 1.35 MG/DL (0.55-1.30); GLOMERULAR FILTRATION RATE 42.3 (>45); POTASSIUM SERUM 4.4 MMOL/L (3.5-5.1); TOTAL PROTEIN 6.5 G/DL (5.7-8.2)
[2022-04-18 17:50] LABS: RSV AMPLIFICATION NEGATIVE (NEGATIVE)
[2022-04-18] MEDS ORDERED: ONDANSETRON 4MG 2ML VIAL IV PRN ×2 (18:05→19:10)
[2022-04-18] MEDS ORDERED: MORPHINE 2 MG/ML 1ML VIAL IV PRN ×2 (18:05→19:10)
[2022-04-18] MEDS ORDERED: cefTRIAXone SOD 1 GM in D5W MINI-BAG PLUS 50 ML IV ONE (18:05)
[2022-04-18] MEDS ORDERED: DEXTROSE 50% 50ML SYRINGE IV PRN (18:05)
[2022-04-18] MEDS ORDERED: ACETAMINOPHEN TAB 650MG DOSE (2X325MG) PO PRN (18:05)
[2022-04-18] MEDS ORDERED: HEPARIN SOD (PORCINE) 5000UNITS/ML 1ML VIAL/SYRINGE SC SCH (18:05)
[2022-04-18] MEDS ORDERED: NS 1,000 ML IV SCH (18:05)
[2022-04-18] MEDS ORDERED: GLUCAGON INJ 1MG VIAL SC PRN (18:05)
[2022-04-18] MEDS ORDERED: GLUCOSE 4GM CHEW TABLET PO PRN (18:05)
[2022-04-18] MEDS ORDERED: ISOVUE-300 61% 100ML VIAL As Ordered ONE (18:36)
[2022-04-18] MEDS ORDERED: propofoL 200 MG/20 ML VIAL As Ordered ONE (18:45)
[2022-04-18] MEDS ORDERED: ONDANSETRON 4MG 2ML VIAL As Ordered ONE (18:45)
[2022-04-18] MEDS ORDERED: fentaNYL 100 MCG/2 ML INJECTION As Ordered ONE (18:45)
[2022-04-18] MEDS ORDERED: MIDAZOLAM INJ 2MG/2ML VIAL As Ordered ONE (18:45)
[2022-04-18] MEDS ORDERED: LIDOCAINE 2% 100MG/5ML SDV (FOR ANES.) As Ordered ONE (18:49)
[2022-04-18] MEDS ORDERED: fentaNYL 100 MCG/2 ML INJECTION IV PRN (19:10)
[2022-04-18] MEDS ORDERED: LR 1,000 ML IV SCH (19:10)
[2022-04-18] MEDS ORDERED: oxyCODONE 5MG TAB PO PRN (19:10)
[2022-04-18] MEDS ORDERED: oxyBUTYnin 5 MG TAB PO PRN (19:55)
[2022-04-18] MEDS ORDERED: INSULIN LISPRO (NovoLOG) PER UNIT SC SCH (21:00)
[2022-04-18 21:40] VITALS: BP 117/55
[2022-04-18 22:10] VITALS: BP 105/50
[2022-04-18 22:40] VITALS: BP 114/66
[2022-04-18] MEDS ORDERED: LISI10TA22 PO (23:27)
[2022-04-18] MEDS ORDERED: CIPR-249 PO (23:27)
[2022-04-18] MEDS ORDERED: VITA100093 PO (23:27)
[2022-04-18] MEDS ORDERED: PANT-23 PO (23:27)
[2022-04-18] MEDS ORDERED: FLOM0.4C39 PO (23:27)
[2022-04-18] MEDS ORDERED: MAGN400T2 PO (23:27)
[2022-04-18] MEDS ORDERED: CINA30TA4 PO (23:27)
[2022-04-18] MEDS ORDERED: ATOR1TAB19 PO (23:27)
[2022-04-18] MEDS ORDERED: OMEG10002 PO (23:27)
[2022-04-18] MEDS ORDERED: HYDR-4571 PO (23:27)
[2022-04-18] MEDS ORDERED: VITMTA PO (23:27)
[2022-04-18] MEDS ORDERED: HOME MED LIST COMPLETE! XX SCH (23:30)
[2022-04-18 23:40] VITALS: BP 136/69
[2022-04-19 00:40] VITALS: BP 137/69
[2022-04-19 01:40] VITALS: BP 137/68
[2022-04-19 02:40] VITALS: BP 131/67
[2022-04-19 06:00] VITALS: BP 133/66
[2022-04-19] MEDS ORDERED: cefTRIAXone SOD 2 GM in D5W MINI-BAG PLUS 50 ML IV SCH (06:00)
[2022-04-19] MEDS ORDERED: INSULIN LISPRO (NovoLOG) PER UNIT SC SCH (07:30)
[2022-04-19 07:59] LABS: BASO % 0.1 % (0.0-1.0); HEMATOCRIT 35.6 % (36.0-47.0); HEMOGLOBIN 12.2 g/dl (12.0-15.5); LYMPH # 0.7 10^3/uL (1.5-5.0); LYMPH % 5.9 % (24.0-44.0); MEAN CORPUSCULAR HEMOGLOBIN 29.3 pg (27.0-33.0); MEAN CORPUSCULAR HGB CONC 34.3 g/dl (32.0-36.5); MEAN CORPUSCULAR VOLUME 85.6 fl (80.0-96.0); MONO # 0.4 10^3/uL (0.0-0.8); MONO % 3.5 % (2.0-8.0); NEUTROPHILS # 10.3 10^3/uL (1.5-8.5); NEUTROPHILS % 89.6 % (36.0-66.0); PLATELET COUNT, AUTOMATED 63 10^3/uL (150-450); RED BLOOD COUNT 4.16 10^6/uL (4.00-5.40); WHITE BLOOD COUNT 11.5 10^3/uL (4.0-10.0)
[2022-04-19 08:07] VITALS: BP 133/66
[2022-04-19 08:34] LABS: ALBUMIN 2.9 G/DL (3.2-5.2); BILIRUBIN,TOTAL 0.6 MG/DL (0.3-1.2); CALCIUM LEVEL 9.4 MG/DL (8.3-10.6); CREATININE FOR GFR 1.19 MG/DL (0.55-1.30); GLOMERULAR FILTRATION RATE 48.9 (>45); MAGNESIUM LEVEL 2.1 MG/DL (1.8-2.4); POTASSIUM SERUM 4.5 MMOL/L (3.5-5.1); TOTAL PROTEIN 5.9 G/DL (5.7-8.2)
[2022-04-19] MEDS ORDERED: HEPARIN SOD (PORCINE) 5000UNITS/ML 1ML VIAL/SYRINGE SC SCH ×2 (09:00)
[2022-04-19] MEDS ORDERED: OMEGA-3 1000MG CAPSULE PO SCH (09:00)
[2022-04-19] MEDS ORDERED: VITAMIN D 1,000 INTERNATIONAL UNITS TABLET PO SCH (09:00)
[2022-04-19] MEDS ORDERED: CINACALCET 30 MG TAB (SENSIPAR) PO SCH (09:00)
[2022-04-19] MEDS ORDERED: TAMSULOSIN 0.4 MG CAP PO SCH (09:00)
[2022-04-19] MEDS ORDERED: PANTOPRAZOLE 40MG TAB (PROTONIX) PO SCH (09:00)
[2022-04-19] MEDS ORDERED: MAGNESIUM OXIDE 400MG TAB (MAG-OX) PO SCH (09:00)
[2022-04-19] MEDS ORDERED: MULTIVITAMINS/MINERALS THERAP 1 TAB PO SCH (09:00)
[2022-04-19] MEDS ORDERED: ACET1TAB55 PO (09:13)
[2022-04-19] MEDS ORDERED: OXYB5TAB10 PO (09:13)
[2022-04-19 10:00] VITALS: BP 127/69
[2022-04-19] MEDS ORDERED: ATORVASTATIN 10 MG TAB PO SCH (21:00)
== END 2022-04-19 11:30 | disposition home or self-care (01) | DRG 661 ==
LOC: M ED 13:20 → M ED INP 18:05 → M ED 18:30 → M MS5PR 21:23
PROVIDERS: ADMIT Family Medicine; ATTEND Family Medicine
PROC: BT16ZZZ Fluoroscopy of Right Ureter (ICD-10-PCS; 2022-04-18)
PROC: 0TC68ZZ Extirpation of Matter from Right Ureter, Via Natural or Artificial Opening Endoscopic (ICD-10-PCS; 2022-04-18)
PROC: 0T768DZ Dilation of Right Ureter with Intraluminal Device, Via Natural or Artificial Opening Endoscopic (ICD-10-PCS; principal; 2022-04-18 17:44)
DX: N13.2 Hydronephrosis with renal and ureteral calculous obstruction (principal); I10 Essential (primary) hypertension; N17.9 Acute kidney failure, unspecified; E78.5 Hyperlipidemia, unspecified; E11.9 Type 2 diabetes mellitus without complications; Z20.822 Contact with and (suspected) exposure to COVID-19; Z91.048 Other nonmedicinal substance allergy status; Z91.030 Bee allergy status; Z79.899 Other long term (current) drug therapy; Z90.49 Acquired absence of other specified parts of digestive tract; Z90.79 Acquired absence of other genital organ(s)

== ENCOUNTER → 2022-10-24 | Outpatient (CLI) | payer OTHER ==
[~2022-10-24] MED LIST changes: +ACET1TAB55 PO; +CINA30TA4 PO; +CIPR-249 PO; +CIPR500T39; +FLOM0.4C39 PO; +HYDR-4571; +HYDR-4571 PO; +LISI10TA22 PO; +MAGN400T2 PO; +OMEG10002 PO; +OXYB5TAB10 PO; +PANT-23 PO; +TAMS1CAP17; +VITA100093 PO; +VITMTA PO
== END ==
LOC: M RAD 08:46
PROVIDERS: ATTEND Urology
DX: N20.0 Calculus of kidney (principal)

== ENCOUNTER → 2023-01-23 | Outpatient (CLI) | payer OTHER ==
[~2023-01-23] MED LIST changes: +LORA-1041 PO; -LORA-674 PO; -OXYB5TAB10 PO; +OXYB5TAB11 PO
== END ==
LOC: M RAD 14:12
PROVIDERS: ATTEND Family Medicine
DX: Z87.891 Personal history of nicotine dependence (principal)

== ENCOUNTER → 2023-02-13 | Outpatient (CLI) | payer OTHER | LOC: M WHC 12:26 | PROVIDERS: ATTEND Internal Medicine Endocrinology, Diabetes & Metabolism | DX: M85.89 Other specified disorders of bone density and structure, multiple sites (principal) ==

== ENCOUNTER → 2023-10-23 | Outpatient (CLI) | payer OTHER ==
[~2023-10-23] MED LIST changes: -OXYB5TAB11 PO; +OXYB5TAB14 PO
== END ==
LOC: M RAD 07:58
PROVIDERS: ATTEND Urology
DX: N20.0 Calculus of kidney (principal)

== ENCOUNTER → 2023-10-24 | Outpatient (REF) | payer OTHER | LOC: M LAB REF 14:54 | PROVIDERS: ATTEND Internal Medicine Endocrinology, Diabetes & Metabolism | DX: E04.1 Nontoxic single thyroid nodule (principal) ==

== ENCOUNTER → 2023-11-21 | Outpatient (CLI) | payer OTHER | LOC: M WHC 08:41 | PROVIDERS: ATTEND Student in an Organized Health Care Education/Training Program | DX: Z12.31 Encounter for screening mammogram for malignant neoplasm of breast (principal); R92.323 Mammographic fibroglandular density, bilateral breasts; Z98.82 Breast implant status; N20.0 Calculus of kidney; Z79.84 Long term (current) use of oral hypoglycemic drugs; Z79.899 Other long term (current) drug therapy; Z90.710 Acquired absence of both cervix and uterus; Z87.891 Personal history of nicotine dependence | CPT/HCPCS: 77063; 77067; G0463 ==

== ENCOUNTER → 2024-05-22 | Outpatient (REF) | payer OTHER ==
[2024-05-22 14:12] LABS: APPEARANCE, URINE HAZY (CLEAR); BACTERIA, URINE AUTO NEGATIVE (NEGATIVE); BILIRUBIN, URINE AUTO NEGATIVE (NEGATIVE); BLOOD, URINE BLOOD 3+ (NEGATIVE); COLOR, URINE YELLOW (YELLOW); GLUCOSE, URINE (UA) AUTO NEGATIVE (NEGATIVE); KETONE, URINE AUTO NEGATIVE (NEGATIVE); LEUKOCYTE ESTERASE, URINE AUTO 2+ (NEGATIVE); NITRITE, URINE AUTO NEGATIVE (NEGATIVE); PROTEIN, URINE AUTO NEGATIVE (NEGATIVE); RBC, URINE AUTO TNTC /HPF (0-3); SPECIFIC GRAVITY URINE AUTO 1.011 (1.002-1.035); SQUAMOUS EPITHELIAL CELL UR AU 0 /HPF (0-6); UROBILINOGEN, URINE AUTO 0.2 mg/dL (0.0-2.0); WBC, URINE AUTO 36 /HPF (0-3)
== END ==
LOC: M SMT 12:53
PROVIDERS: ATTEND Nurse Practitioner Family
DX: R39.15 Urgency of urination (principal)

== ENCOUNTER → 2024-05-27 | Outpatient (CLI) | payer OTHER | LOC: M RAD 10:23 | PROVIDERS: ATTEND Internal Medicine | DX: Z87.891 Personal history of nicotine dependence (principal) ==

== ENCOUNTER → 2024-07-02 | Outpatient (REF) | payer OTHER ==
[~2024-07-02] MED LIST changes: -FLOM0.4C39 PO; +TAMS-18 PO
[2024-07-02 15:33] LABS: AMORPHOUS SEDIMENT SMALL (NEGATIVE); APPEARANCE, URINE CLOUDY (CLEAR); BACTERIA, URINE AUTO NEGATIVE (NEGATIVE); BILIRUBIN, URINE AUTO NEGATIVE (NEGATIVE); BLOOD, URINE BLOOD 2+ (NEGATIVE); COLOR, URINE YELLOW (YELLOW); GLUCOSE, URINE (UA) AUTO NEGATIVE (NEGATIVE); KETONE, URINE AUTO NEGATIVE (NEGATIVE); LEUKOCYTE ESTERASE, URINE AUTO TRACE (NEGATIVE); MUCUS, URINE SMALL (NEGATIVE); NITRITE, URINE AUTO NEGATIVE (NEGATIVE); PROTEIN, URINE AUTO 1+ mg/dL (NEGATIVE); RBC, URINE AUTO 89 /HPF (0-3); SPECIFIC GRAVITY URINE AUTO 1.016 (1.002-1.035); SQUAMOUS EPITHELIAL CELL UR AU 0 /HPF (0-6); UROBILINOGEN, URINE AUTO 0.2 mg/dL (0.0-2.0); WBC, URINE AUTO 13 /HPF (0-3)
== END ==
LOC: M SMT 14:53
PROVIDERS: ATTEND Nurse Practitioner Family
DX: Z87.440 Personal history of urinary (tract) infections (principal)

== ENCOUNTER → 2024-07-15 | Outpatient (REF) | payer OTHER ==
[2024-07-16 18:33] LABS: TOTAL PROTEIN,RANDOM URINE 16.3 MG/DL (0.0-14.0)
[2024-07-16 18:37] LABS: CREATININE,RANDOM URINE 34.2 MG/DL
== END ==
LOC: M LAB REF 16:54
PROVIDERS: ATTEND Internal Medicine Nephrology
DX: R80.9 Proteinuria, unspecified (principal)

== ENCOUNTER → 2024-07-22 | Outpatient (CLI) | payer OTHER | LOC: M RAD 08:39 | PROVIDERS: ATTEND Nurse Practitioner Family | DX: R39.15 Urgency of urination (principal); Z87.440 Personal history of urinary (tract) infections ==

== ENCOUNTER → 2024-09-15 | Outpatient (CLI) | payer OTHER ==
[~2024-09-15] VITALS: Ht 162.6 cm; Wt 150.0 kg
[~2024-09-15] MED LIST changes: +ATOR1TAB21 PO; +BISA5TAB72 PO; +CINA30TA5 PO; +COLA100C5 PO; +MIRA3350 PO; +MORPHINE 2 MG/ML 1 ML VIAL IV PRN; +MYRB50TA PO; +NS (Normal Saline) 0.9% 1,000 ML IV SCH; +PERCOCET 5MG/325MG TAB PO PRN; +PERCOCET PO
[2024-09-15 10:15] VITALS: TEMP 97.3
[2024-09-15] MEDS: CIPROFLOXACIN 400 MG in IV 1 EA IV ONE (10:59)
[2024-09-15] MEDS: SODIUM CHLORIDE 0.9% 1000 ML XX SCH (11:25)
[2024-09-15] MEDS: NS (Normal Saline) 0.9% 1,000 ML IV SCH (11:25)
[2024-09-15] MEDS: MIDAZOLAM INJ 2 MG/2 ML VIAL IV PRN (11:26)
[2024-09-15] MEDS: LIDOCAINE 1% MDV 20 ML VIAL SC SCH (11:45)
[2024-09-15] MEDS: ISOVUE-300 61% 100 ML VIAL IV SCH (11:45)
[2024-09-15] MEDS: ACETAMINOPHEN 325 MG TAB PO PRN (12:42)
[2024-09-15] MEDS: ONDANSETRON 4MG 2ML VIAL IV PRN (13:37)
[2024-09-15 14:00] VITALS: BP 151/65; O2SAT 98
== END ==
LOC: M IRPRO 10:02
PROVIDERS: ATTEND Nurse Practitioner Family
DX: N20.0 Calculus of kidney (principal)
CPT/HCPCS: 50433; 76942; 99152; 99153; C1758; C1894; J0744; J2250; J2405; J3010; Q9967

== ENCOUNTER 2024-09-21 08:18 | Day surgery (SDC) | payer OTHER ==
[~2024-09-21] VITALS: Ht 162.6 cm; Wt 65.8 kg
[~2024-09-21 08:18] MED LIST changes: -CINA30TA5 PO; -COLA100C5 PO; +GLYCOPYRROLATE INJ 0.2 MG/ML 2 ML VIAL As Ordered ONE; +KETOROLAC 30 MG/ML 1 ML VIAL As Ordered ONE; +LIDOCAINE 2% 100 MG/5 ML SDV (FOR ANES.) As Ordered ONE; +MIDAZOLAM INJ 2 MG/2 ML VIAL As Ordered ONE; -MORPHINE 2 MG/ML 1 ML VIAL IV PRN; -NS (Normal Saline) 0.9% 1,000 ML IV SCH; +ONDANSETRON 4MG 2ML VIAL As Ordered ONE; -PERCOCET 5MG/325MG TAB PO PRN; -PERCOCET PO; +dexAMETHasone 4 MG/ML 1 ML VIAL As Ordered ONE
[2024-09-21] MEDS: LR 1,000 ML IV SCH (09:00)
[2024-09-21] MEDS ORDERED: ROCURONIUM BROMIDE 50MG/5ML VIAL As Ordered ONE (09:41)
[2024-09-21] MEDS ORDERED: SUGAMMADEX SODIUM 500 MG/5 ML VIAL As Ordered ONE (09:42)
[2024-09-21] MEDS ORDERED: ACETAMINOPHEN 325 MG TAB PO PRN (11:05)
[2024-09-21] MEDS ORDERED: DEXTROSE 50% 50 ML SYRINGE IV PRN (11:05)
[2024-09-21] MEDS ORDERED: GLUCAGON INJ 1 MG VIAL SC PRN (11:05)
[2024-09-21] MEDS ORDERED: GLUCOSE 4 GM CHEW PO PRN (11:05)
[2024-09-21] MEDS ORDERED: ONDANSETRON 4MG 2ML VIAL IV PRN (11:05)
[2024-09-21] MEDS: SCOPOLAMINE 1MG TRANSDERMAL PATCH TOP ONE (11:22)
[2024-09-21] MEDS: ceFAZolin SOD 2 GM IV ONCE IV ONE (11:25)
[2024-09-21] MEDS ORDERED: ACETAMINOPHEN 1000MG/100ML IV BAG As Ordered ONE (11:46)
[2024-09-21] MEDS: INSULIN LISPRO (NovoLOG) PER UNIT SC SCH ×2 (12:00→21:00)
[2024-09-21] MEDS: SCOPOLAMINE 1MG TRANSDERMAL PATCH As Ordered ONE (12:04)
[2024-09-21] MEDS ORDERED: HYDROmorphone HCL 2 MG/ML 1 ML VIAL As Ordered ONE (12:30)
[2024-09-21] MEDS: ISOVUE-300 61% 100 ML VIAL As Ordered ONE (12:55)
[2024-09-21] MEDS: ONDANSETRON 4MG 2ML VIAL IV PRN (13:29)
[2024-09-21 13:46] LABS: PLATELET COUNT, AUTOMATED 142 10^3/uL (150-450)
[2024-09-21] MEDS ORDERED: HYDROMORPHONE HCL 0.5 MG/0.5 ML SYRINGE IV PRN (13:50)
[2024-09-21 14:12] LABS: CALCIUM LEVEL 9.4 MG/DL (8.3-10.6); CARBON DIOXIDE LEVEL 28.0 MMOL/L (20-31); CHLORIDE LEVEL 103.0 MMOL/L (98-107); CREATININE FOR GFR 0.78 MG/DL (0.55-1.30); GLOMERULAR FILTRATION RATE 84.8 (>45); POTASSIUM SERUM 4.3 MMOL/L (3.5-5.1); SODIUM LEVEL 140.0 MMOL/L (136-145)
[2024-09-21 15:00] VITALS: BP 158/88; TEMP 97.5; O2SAT 94
[2024-09-21 15:30] VITALS: BP 160/90; TEMP 97.3; O2SAT 94
[2024-09-21] MEDS ORDERED: CINA30TA5 PO (15:39)
[2024-09-21] MEDS ORDERED: OXYB5TAB14 PO (15:39)
[2024-09-21] MEDS ORDERED: HOME MED LIST COMPLETE! XX SCH (16:10)
[2024-09-21 16:30] VITALS: BP 155/89; TEMP 97.5; O2SAT 94
[2024-09-21 17:30] VITALS: BP 158/87; TEMP 97.6; O2SAT 95
[2024-09-21] MEDS: NS (Normal Saline) 0.9% 1,000 ML IV SCH (17:52)
[2024-09-21] MEDS: PERCOCET 5MG/325MG TAB PO PRN ×2 (17:55→23:51)
[2024-09-21 18:30] VITALS: BP 152/89; TEMP 97.5; O2SAT 95
[2024-09-21 20:39] VITALS: BP 144/86; TEMP 97.7; O2SAT 93
[2024-09-21] MEDS: ceFAZolin SOD 1 GM in DEXTROSE 5% (D5W) ADV/MINI-BAG 50 ML IV SCH (20:45)
[2024-09-21] MEDS: DOCUSATE SODIUM 100 MG CAPSULE PO SCH (20:45)
[2024-09-21] MEDS: ATORVASTATIN 20 MG TAB PO SCH (20:45)
[2024-09-22 00:35] VITALS: BP 160/88; TEMP 98.2; O2SAT 95
[2024-09-22 04:00] VITALS: BP 117/57; TEMP 97.3; O2SAT 94
[2024-09-22 08:02] LABS: PLATELET COUNT, AUTOMATED 132 10^3/uL (150-450)
[2024-09-22 08:19] LABS: CALCIUM LEVEL 9.0 MG/DL (8.3-10.6); CARBON DIOXIDE LEVEL 25 MMOL/L (20-31); CHLORIDE LEVEL 105 MMOL/L (98-107); CREATININE FOR GFR 0.72 MG/DL (0.55-1.30); GLOMERULAR FILTRATION RATE > 90.0 (>45); POTASSIUM SERUM 4.1 MMOL/L (3.5-5.1); SODIUM LEVEL 141 MMOL/L (136-145)
[2024-09-22 09:18] VITALS: BP 111/56
[2024-09-22] MEDS: PANTOPRAZOLE 40MG TAB PO SCH (09:20)
[2024-09-22 09:21] VITALS: BP 111/56
[2024-09-22] MEDS ORDERED: COLA100C5 PO (11:23)
[2024-09-22] MEDS ORDERED: PERCOCET PO (11:23)
== END 2024-09-22 12:00 | disposition home or self-care (01) ==
LOC: M SDC 08:18 → M MS5PR 15:00 → M SDC 09-22 12:00
PROVIDERS: ATTEND Urology
DX: N20.0 Calculus of kidney (principal); E11.9 Type 2 diabetes mellitus without complications; Z91.040 Latex allergy status; Z91.030 Bee allergy status; Z79.899 Other long term (current) drug therapy; Z87.891 Personal history of nicotine dependence
CPT/HCPCS: 36415; 50081; 76000; 80048; 82365; 85027; 86850; 86900; 86901; C1769; C1887; C2617; J0131; J0690; J1100; J1171; J1596; J1815; J1885; J2250; J2405; J2765; J3010; Q9967

== ENCOUNTER → 2025-01-01 | Outpatient (CLI) | payer OTHER ==
[~2025-01-01] MED LIST changes: +CINA30TA5 PO; +COLA100C5 PO; -GLYCOPYRROLATE INJ 0.2 MG/ML 2 ML VIAL As Ordered ONE; -KETOROLAC 30 MG/ML 1 ML VIAL As Ordered ONE; -LIDOCAINE 2% 100 MG/5 ML SDV (FOR ANES.) As Ordered ONE; -MIDAZOLAM INJ 2 MG/2 ML VIAL As Ordered ONE; -ONDANSETRON 4MG 2ML VIAL As Ordered ONE; +PERCOCET PO; -dexAMETHasone 4 MG/ML 1 ML VIAL As Ordered ONE
[2025-01-01 14:30] VITALS: BP 137/67; TEMP 97.9; O2SAT 97
[2025-01-01] MEDS: LIDOCAINE 1% MDV 20 ML VIAL SC SCH (16:11)
== END ==
LOC: M IRPRO 14:00
PROVIDERS: ATTEND Otolaryngology
DX: E04.1 Nontoxic single thyroid nodule (principal)